=== PATIENT | male | born 1985 | race Caucasian/White ===

== ENCOUNTER 2021-01-18 02:29 | Emergency (ER) | payer OTHER, SELFPAY ==
[2021-01-18 02:30] VITALS: BP 173/104; PULSE 88; RESP 20; TEMP 36.6; O2SAT 98
--- NOTE | 2021-01-18 02:40 | ED.GENADULT ---
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 His co-worker was concerned that they may have mixed that solution incorrectly and asked him to take off his mask and smell. He did so. Over the last number of years he has had significant experience with similar chemicals and has never had any type of adverse reaction. Today after taking off his mask he stated that he just felt ?unusual?. He does not describe coughing, eye irritation, nose running or dyspnea. No wheezing. He is quite anxious about the exposure and comes in for further evaluation he denies any recent fevers, cough, abdominal pain, vomiting, diarrhea. He states he does not currently have a headache Review of Systems Review of Systems Narrative: Remainder of complete review of systems is otherwise unremarkable except for that included in the HPI. Patient History Medical History Autism Developmental delay, mild Social History Smoking Status: Former smoker Exam Narrative Exam Narrative: General: Morbidly obese, no significant respiratory distress, somewhat anxious but able to give a reasonable history and participate with exam HEENT: Moist mucous membranes, normal sclera with reactive pupils, Respiratory: Lungs are clear to auscultation, no wheezing no rales no rhonchi. Full and symmetrical air movement Cardiac: Regular rate and rhythm no murmurs no bruits Abdomen: Soft, nontender, good bowel tones, no flank pain Skin: Warm and dry, no rashes Neurologic: Grossly neurologically intact with no obvious asymmetries or abnormalities Extremities: No trauma, well perfused Psych: Cooperative, appropriate insight and affect Initial Vital Signs Initial Vital Signs: Vital Signs Temperature 98 F 01/18/21 02:30 Pulse Rate 88 01/18/21 02:30 Respiratory Rate 20 01/18/21 02:30 Blood Pressure 173/104 H 01/18/21 02:30 Pulse Oximetry 98 01/18/21 02:30 Course Vital Signs Vital signs: Vital Signs - 8 hr 01/18/21 02:30 Temperature 98 F Pulse Rate 88 Respiratory Rate 20 Blood Pressure 173/104 H Pulse Oximetry 98 Medical Decision Making MDM Narrative Medical decision making narrative: 35-year-old gentleman with brief exposure to floor stripping chemicals. Concerned that it was causing adverse reaction but difficulty in verbalizing his overall symptoms. Comes in for further evaluation. He is in no respiratory distress but is quite anxious. Comes nicely with approximately 30 minutes of oxygen in place. Reassurance is given and he is safe for home discharge. Discharge Plan Departure Patient Disposition: Home Clinical Impression: Chemical exposure Activity Restrictions/Additional Instructions: Thank you for coming in today It is a little frightening when you know that you have been exposed to a chemical and then you are feeling unusual. Your exam in the emergency room is very reassuring. There is no evidence of wheezing or lung injury. It is safe for you to go home. In the future, I would recommend that you continue to wear your mask when you are using industrial chemicals at work. I hope you feel better. Stand Alone Forms: Work Release Note
--- NOTE | 2021-01-18 03:05 | PC.NURSE ---
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
[2021-01-18 03:15] VITALS: BP 165/90
== END 2021-01-18 03:33 | disposition home or self-care (01) ==
LOC: ED 03:32
PROVIDERS: Emergency Provider Emergency Medicine
DX: Z77.098 Contact with and (suspected) exposure to other hazardous, chiefly nonmedicinal, chemicals (principal); Y99.0 Civilian activity done for income or pay
CPT/HCPCS: 99281; 99283